=== PATIENT | male | born 1995 | race Two or more races ===

== ENCOUNTER 2023-10-12 22:57 | Emergency (ER) | payer OTHER ==
[~2023-10-12] VITALS: Ht 172.7 cm; Wt 72.0 kg
[2023-10-12 23:30] VITALS: BP 147/90; PULSE 84; RESP 18; TEMP 98.2; O2SAT 97
[2023-10-13 00:14] LABS: Amphetamine Screen, Urine Neg (NEGATIVE); Barbiturate Scree,Urine Neg (NEGATIVE); Benzodiazephine Screen, Urine Neg (NEGATIVE)
[2023-10-13 00:15] LABS: Cannabinoid Screen, Urine Neg (NEGATIVE); Cocaine Screen, Urine Neg (NEGATIVE); Opiate Scree,Urine Neg (NEGATIVE); Phencyclidine Screen, Urine Neg (NEGATIVE)
[2023-10-13] MEDS ORDERED: BUSP15TA60 PO (04:17)
[2023-10-13] MEDS ORDERED: RISP4TAB53 PO (04:17)
[2023-10-13] MEDS ORDERED: FLUO20TA42 PO (04:17)
[2023-10-13] MEDS: risperiDONE 1 MG TAB PO ONE (04:32)
[2023-10-13] MEDS: busPIRone HCL 10 MG TAB PO ONE (04:33)
== END 2023-10-13 06:35 | disposition home or self-care (01) ==
LOC: ER 22:57 → EDBD 22:57 → ER 10-13 06:28
DX: F29 Unspecified psychosis not due to a substance or known physiological condition (principal); F32.9 Major depressive disorder, single episode, unspecified; F20.9 Schizophrenia, unspecified; Z79.899 Other long term (current) drug therapy
CPT/HCPCS: 36415; 80307; 80320

== ENCOUNTER 2023-10-13 11:17 | Emergency (ER) | payer OTHER ==
[~2023-10-13] VITALS: Ht 170.2 cm; Wt 91.0 kg
[~2023-10-13 11:17] MED LIST: BUSP15TA60 PO; FLUO20TA42 PO; RISP4TAB53 PO
[2023-10-13 11:39] VITALS: PULSE 119; RESP 18; O2SAT 95
[2023-10-13 11:50] LABS: Urine Bacteria None Seen /hpf (None Seen); Urine WBC None Seen /hpf (0 - 3)
[2023-10-13 12:10] LABS: Urine Blood Negative /uL (Negative); Urine Clarity Clear (Clear); Urine Color Light-Yellow (Yellow); Urine Protein, UAD Negative (Negative); Urine Specific Gravity 1.018 (1.001-1.035); Urine Urobilinogen Normal (Negative); Urine pH 6.5 (5.0-9.0)
[2023-10-13 12:20] LABS: Amphetamine Screen, Urine Neg (NEGATIVE); Barbiturate Scree,Urine Neg (NEGATIVE); Benzodiazephine Screen, Urine Neg (NEGATIVE); Cannabinoid Screen, Urine Neg (NEGATIVE); Cocaine Screen, Urine Neg (NEGATIVE); Opiate Scree,Urine Neg (NEGATIVE); Phencyclidine Screen, Urine Neg (NEGATIVE)
[2023-10-13 12:24] LABS: Basophils # (auto) 0 10 ^3/uL (0-0.2); Basophils % (auto) 0.7 % (0.0-2.0); Chloride 110 mmol/L (98-107); Eosinophils # (auto) 0.1 10 ^3/uL (0-0.8); Hematocrit 42.5 % (41.0-53.0); Hemoglobin 14.7 g/dL (13.5-17.5); Lymphocytes # (auto) 1.7 10 ^3/uL (0.4-5.4); Lymphocytes % (auto) 26.5 % (10.0-50.0); Mean Corpuscular Hemoglobin 29.8 pg (28.0-32.0); Mean Corpuscular Hgb Conc. 34.6 g/dL (32.0-36.0); Mean Corpuscular Volume 86.2 fL (80.0-100.0); Monocytes # (auto) 0.4 10 ^3/uL (0-1.3); Monocytes % (auto) 6.5 % (0.0-12.0); Neutrophils # (auto) 4.1 10 ^3/uL (1.6-8.6); Neutrophils % (auto) 64.3 % (37.0-80.0); Nucleated Red Blood Cells % 0.1 %; Platelet Count (auto) 238 10^3/uL (140-450); Potassium 4.1 mmol/L (3.5-5.1); Red Blood Cells 4.93 10^6/uL (4.5-5.90); Sodium 141 mmol/L (136-145); White Blood Cell 6.3 10^3/uL (4.4-10.8)
[2023-10-13 12:25] LABS: Anion Gap 2 (5-15); Calcium 9.9 mg/dL (8.7-10.4); Carbon Dioxide 29 mmol/L (20-30)
[2023-10-13 12:30] LABS: BUN/Creatinine Ratio 12.2 (10.0-20.0); Blood Alcohol < 3.0 mg/dL (<10); Blood Urea Nitrogen 10 mg/dL (9-23); Glucose 169 mg/dL (74-106)
[2023-10-13 12:32] LABS: Acetaminophen < 2.0 UG/ML (10.0-20.0)
[2023-10-13 12:37] LABS: Salicylate < 3.0 mg/dL (2.8-20.0)
[2023-10-14 07:45] VITALS: PULSE 77; RESP 18; O2SAT 97
[2023-10-14] MEDS: busPIRone HCL 10 MG TAB PO SCH (12:16)
[2023-10-14] MEDS: FLUoxetine HCL 20 MG CAP PO SCH (12:16)
[2023-10-15 06:34] VITALS: PULSE 68; RESP 16; O2SAT 96
[2023-10-15] MEDS: risperiDONE 1 MG TAB PO SCH (07:40)
[2023-10-15 08:40] VITALS: PULSE 73; RESP 16; O2SAT 95
[2023-10-16 04:11] VITALS: PULSE 70; RESP 14; O2SAT 96
[2023-10-16 20:00] VITALS: PULSE 88; RESP 18; O2SAT 98
[2023-10-17] MEDS ORDERED: BUSP15TA60 PO (13:29)
[2023-10-17] MEDS ORDERED: RISP4TAB53 PO (13:29)
[2023-10-17] MEDS ORDERED: FLUO20TA42 PO (13:29)
[2023-10-17 14:32] VITALS: BP 117/72; PULSE 78; RESP 16; TEMP 98.3; O2SAT 98
== END 2023-10-17 14:36 | disposition home or self-care (01) ==
LOC: ER 11:17
DX: R45.851 Suicidal ideations (principal); F32.9 Major depressive disorder, single episode, unspecified; F20.9 Schizophrenia, unspecified
CPT/HCPCS: 36415; 80048; 80307; 80320; 80329; 81001; 85025